=== PATIENT | female | born 1930 | race African-American/Black ===

== ENCOUNTER 2017-03-04 10:24 | Outpatient (CLI) | payer OTHER ==
[~2017-03-04 10:24] MED LIST: ALBUTEROL2 MG/5 ML PO; ALPR0.5T24 PO; AMLO5TAB PO; AMOX875T8 PO; CIPRO500 MG PO; HYDR2TAB12 PO; LEXAPRO10 MG OR; LORA10TA3 PO; MEDROL DOSEPAK4 MG PO; NYST100048 PO; OXYC5TAB24 PO; ZOLP10TA2 PO; [UNRECOGNIZED DRUG - OTHER] EX
[2017-03-04 11:09] LABS: PLATELET COUNT 105 K/uL (152-353)
[2017-03-04 11:22] LABS: POTASSIUM 3.9 mmol/L (3.6-5.2); SODIUM 139 mmol/L (136-145)
[2017-03-04 11:45] LABS: PARTIAL THROMBOPLASTIN TIME 28.5 SECONDS (24.5-33.6)
== END 2017-03-04 19:36 | disposition home or self-care (01) ==
LOC: LABW 10:24
PROVIDERS: Family Medicine
DX: R42 Dizziness and giddiness (principal); R51 Headache; R63.4 Abnormal weight loss; R74.8 Abnormal levels of other serum enzymes; Z85.3 Personal history of malignant neoplasm of breast; D69.6 Thrombocytopenia, unspecified; E55.9 Vitamin D deficiency, unspecified
CPT/HCPCS: 36415; 80053; 80061; 81000; 82043; 82306; 82570; 83735; 84439; 84443; 84550; 85027; 85610; 85651; 85730

== ENCOUNTER 2017-03-06 10:40 | Outpatient (CLI) | payer OTHER | END 2017-03-06 19:16 | disposition home or self-care (01) | LOC: LABW 10:40 | DX: R42 Dizziness and giddiness (principal); R53.1 Weakness; D64.9 Anemia, unspecified | CPT/HCPCS: 36415; 82607; 82728; 82746; 83540; 83550 ==

== ENCOUNTER 2017-03-18 09:44 | Outpatient (CLI) | payer OTHER | END 2017-03-18 19:06 | disposition home or self-care (01) | LOC: CT 09:44 | DX: R42 Dizziness and giddiness (principal); R51 Headache; R63.4 Abnormal weight loss; F32.89 Other specified depressive episodes; Z85.3 Personal history of malignant neoplasm of breast; R74.8 Abnormal levels of other serum enzymes | CPT/HCPCS: Q9963 ==

== ENCOUNTER 2017-04-03 09:43 | Outpatient (CLI) | payer OTHER | END 2017-04-03 19:30 | disposition home or self-care (01) | LOC: US 09:43 | DX: R93.5 Abnormal findings on diagnostic imaging of other abdominal regions, including retroperitoneum (principal); R53.1 Weakness; R63.0 Anorexia; C50.919 Malignant neoplasm of unspecified site of unspecified female breast ==

== ENCOUNTER 2017-07-22 11:55 | Outpatient (CLI) | payer OTHER ==
[2017-07-22 12:20] LABS: POTASSIUM 3.9 mmol/L (3.6-5.2); SODIUM 140 mmol/L (136-145)
[2017-07-22 13:01] LABS: PLATELET COUNT 103 K/uL (152-353)
== END 2017-07-22 12:55 | disposition home or self-care (01) ==
LOC: LABW 11:55
PROVIDERS: Internal Medicine Hematology & Oncology
DX: C50.811 Malignant neoplasm of overlapping sites of right female breast (principal); E55.9 Vitamin D deficiency, unspecified
CPT/HCPCS: 36415; 80053; 82306; 85027

== ENCOUNTER 2017-07-24 16:15 | Outpatient (CLI) | payer OTHER ==
[2017-07-24 16:48] LABS: PLATELET COUNT 97 K/uL (152-353)
== END 2017-07-24 19:13 | disposition home or self-care (01) ==
LOC: LABW 16:15
PROVIDERS: Internal Medicine Hematology & Oncology
DX: C50.811 Malignant neoplasm of overlapping sites of right female breast (principal); R53.83 Other fatigue; R53.81 Other malaise
CPT/HCPCS: 36415; 80074; 85027; 87522

== ENCOUNTER 2017-08-30 11:34 | Emergency (ER) | payer OTHER ==
[~2017-08-30] VITALS: Ht 147.3 cm; Wt 42.6 kg
[2017-08-30 12:00] VITALS: BP 151/71; TEMP 98.4
[2017-08-30 12:17] LABS: PLATELET COUNT 162 K/uL (152-353)
[2017-08-30 12:34] LABS: POTASSIUM 3.2 mmol/L (3.6-5.2); SODIUM 137 mmol/L (136-145)
== END 2017-08-30 14:45 | disposition home or self-care (01) ==
LOC: ED 11:34
DX: K52.89 Other specified noninfective gastroenteritis and colitis (principal)
CPT/HCPCS: 80053; 81000; 83605; 85027; 87804; 96374; 96375; 99284; J0696; J2405

== ENCOUNTER 2017-09-02 16:41 | Outpatient (CLI) | payer OTHER ==
[2017-09-02 16:58] LABS: PLATELET COUNT 126 K/uL (152-353)
== END 2017-09-02 17:45 | disposition home or self-care (01) ==
LOC: LABW 16:41
PROVIDERS: Internal Medicine Hematology & Oncology
DX: C50.811 Malignant neoplasm of overlapping sites of right female breast (principal)
CPT/HCPCS: 36415; 85027

== ENCOUNTER 2018-01-16 12:21 | Outpatient (CLI) | payer OTHER ==
[2018-01-16 12:47] LABS: PLATELET COUNT 115 K/uL (152-353)
[2018-01-16 12:48] LABS: POTASSIUM 3.6 mmol/L (3.6-5.2)
== END 2018-01-16 19:27 | disposition home or self-care (01) ==
LOC: LABW 12:21
PROVIDERS: Internal Medicine Hematology & Oncology
DX: C50.811 Malignant neoplasm of overlapping sites of right female breast (principal)
CPT/HCPCS: 36415; 80053; 85027

== ENCOUNTER 2018-01-22 09:51 | Outpatient (CLI) | payer OTHER | END 2018-01-22 20:20 | disposition home or self-care (01) | LOC: MAMMO 09:51 | DX: Z85.3 Personal history of malignant neoplasm of breast (principal); Z90.11 Acquired absence of right breast and nipple; Z12.31 Encounter for screening mammogram for malignant neoplasm of breast ==

== ENCOUNTER 2018-11-04 09:11 | Outpatient (CLI) | payer OTHER | END 2018-11-04 23:15 | disposition home or self-care (01) | LOC: CT 09:11 | DX: K46.9 Unspecified abdominal hernia without obstruction or gangrene (principal) ==

== ENCOUNTER 2018-11-30 18:14 | Emergency (ER) | payer OTHER ==
[~2018-11-30] VITALS: Ht 142.2 cm; Wt 42.6 kg
[2018-11-30 20:24] LABS: PLATELET COUNT 107 K/uL (152-353)
[2018-11-30 20:27] LABS: POTASSIUM 3.8 mmol/L (3.6-5.2)
[2018-11-30 23:34] VITALS: BP 150/78; TEMP 98.2
== END 2018-11-30 23:38 | disposition home or self-care (01) ==
LOC: ED 18:14
PROVIDERS: Family Medicine
DX: K59.09 Other constipation (principal); R10.32 Left lower quadrant pain; K45.8 Other specified abdominal hernia without obstruction or gangrene
CPT/HCPCS: 36415; 80053; 82150; 83605; 83690; 85027; 87040; 96360; 96375; 99284; J2175; J2405; Q9963

== ENCOUNTER 2018-12-15 17:44 | Inpatient (IN) | payer OTHER ==
[~2018-12-15] VITALS: Ht 142.2 cm; Wt 42.2 kg
[2018-12-15 18:24] VITALS: BP 161/70; TEMP 97.6; Ht 142.2 cm; Wt 42.2 kg
--- NOTE | 2018-12-15 18:36 | NUR ---
1750 PT ARRIVED TO FLOOR VIA W/C ACCOMPANIED BY DAUGHTER. PT DOES NOT SPEAK [place]. ROCIO, TOM TRANSLATED. PT IS C/O PAIN IN LOWER BACK. PT HAS 22G IV TO LEFT FOREARM X2 STICKS. PT IS IN NAD AT THIS TIME. PT HR REGULAR ON AUSCULTATION. CLEAR BILAT LUNG SOUNDS THROUGHT OUT ALL LOBES. PT REQUIRES ASSISTANCE TO TRANSFER. NO WOUNDS PRESENT ON ADMISSION.
[2018-12-15 19:21] LABS: PLATELET COUNT 121 K/uL (152-353)
[2018-12-15 19:53] VITALS: BP 154/74; TEMP 98.6
[2018-12-15 20:15] LABS: POTASSIUM 3.6 mmol/L (3.6-5.2)
--- NOTE | 2018-12-15 20:40 | NUR ---
16FR ECHEVARRIA CATH INSERTED USING [facility]. URINE SAMPLE TAKEN TO LAB. PT TOLERATED WELL. PT WAS ASKED IF HER PAIN WAS DECREASING, PT STATED THAT HER WAS. PT WAS MEDICATED BEFORE HAND
[2018-12-15] MEDS ORDERED: CLON0.5T36 PO (21:48)
[2018-12-15] MEDS ORDERED: AMLODIPINE BESYLATE PO (21:48)
[2018-12-15] MEDS ORDERED: HYDR25CA25 PO (21:50)
[2018-12-15] MEDS ORDERED: AMBIEN5 MG PO (21:50)
[2018-12-15 23:49] VITALS: BP 159/69; TEMP 98.2
[2018-12-16 04:00] VITALS: BP 172/71; TEMP 97.8
--- NOTE | 2018-12-16 04:00 | NUR ---
ASSISTED PT UP TO BSC. PT BECAME NAUSETED. PT WAS GIVEN ZOFRAN AND TORADOL. PT WANTED TO GO INTO BATHROOM, ASSISTED PT INTO BATHROOM. PT LOOKS AT CATH AND SAYS DARNELLEE. PT STATED NO SARI (NO BM)
--- NOTE | 2018-12-16 04:21 | NUR ---
88YOF who was admitted to [facility] with a diagnosis of fall with severe back pain, n/v/dehydration, intractable pain and IBW = 90+/-10% and is 103% IBW and Kcal needs 2908-7267 kcal/day, Protein needs 40-50 grams and Fluids= 3427-6408++ ml d/t Dx. per day x 25. BMI at 19.43 wnl's for height and weight ratio. Recommend: 1-Increase Fluids as tolerated. 2-If any open areas from fall add Vitamin C 500 mg BID, ZNSO4 220 mg per day. 3- If not eating 75% of meals add a MVI1 po q day and a supplement
[2018-12-16] MEDS ORDERED: EQL CLEARLAX PO (05:32)
[2018-12-16 08:00] VITALS: BP 138/61; TEMP 97.7
[2018-12-16 12:00] VITALS: BP 148/62; TEMP 97.7
[2018-12-16 16:00] VITALS: BP 146/56; TEMP 97.5
[2018-12-16 20:21] VITALS: BP 147/58; TEMP 98.1
[2018-12-16 23:47] VITALS: BP 150/68; TEMP 97.7
[2018-12-17 04:00] VITALS: BP 146/61; TEMP 98.3
[2018-12-17 04:44] LABS: PLATELET COUNT 100 K/uL (152-353)
[2018-12-17 05:06] LABS: POTASSIUM 3.3 mmol/L (3.6-5.2)
[2018-12-17 08:00] VITALS: BP 172/82; TEMP 98.1
[2018-12-17 12:00] VITALS: BP 141/61; TEMP 98.2
[2018-12-17 16:00] VITALS: BP 143/95; TEMP 98.1
--- NOTE | 2018-12-17 18:30 | NUR ---
PT TURNED ON LEFT LATERAL SIDE. FLEETING ENEMA ADMINISTERED. PT HELD ENEMA FOR 5 MINUTES AND PRODUCED SMALL FORMED BM IN BSC. PT WAS CLEANED AND DRIED AND ASSISTED BACK TO BED. CALL LIGHT WITHIN REACH. WILL CONTINUE TO MONITOR PT.
[2018-12-17 20:00] VITALS: BP 126/54; TEMP 98.4
[2018-12-18] VITALS: BP 128/58; TEMP 98.4
--- NOTE | 2018-12-18 03:24 | NUR ---
12/18/18 0030 PT IS AWAKE CONTINOUSLY IS TRYING TO GET OUT OF BED ASSISTED BACK TO BED ALARM ON.CC 12/18/18 0125 BED ALARM GOING OFF AGAIN PCT WENT TO ROOM PT OFF BED HOLDING ECHEVARRIA CATHETER AND PULLED IT OUT WITH BULB INFLATED NO TRAUMA NOTED.ASSISTED PT ONCE AGAIN TO GET BACK IN BED.TRIED TO CALL FAMILY BUT HAS NOT RESPONSED.C 12/18/18 0145 FAMILY MEMBER IS HERE EXPLAINED SITUATION AND THAT IF HE COULD STAY THEY WOULD BE VERY HELPFUL.TOLD HIM I JUST GOT HER BACK TO BED AFTER ASSISTING TO BEDSIDE COMMODE VOIDED 250 ML.PT WAS GIVEN A SNACK.CC 12/18/18 0330 FAMILY MEMBER PRESENT IN ROOM WITH PATIENT ASKED HIM IF SHE IS TRYING TO GET UP AND HE SAID NO I TOLD HIM IT IS BECAUSE SHE KNOWS SOMEONE IS WITH HER HE AGREED.TOLD HIM TO CALL IF HE NEEDS ANY ASSISTANCE.CALL LIGHT WITHIN REACH.CC
[2018-12-18 03:55] VITALS: BP 140/60; TEMP 98.6
--- NOTE | 2018-12-18 04:29 | NUR ---
12/18/18 0425 PT GETTING OUT OF BED ASSITED TO BEDSIDE COMMODE VOIDED 500ML YELLOW URINE.ASSISTED BACK TO BED BED ALARM PUT BACK ON.FAMILY MEMBER STEPPED AWAY FROM ROOM.CC
[2018-12-18 05:25] LABS: PLATELET COUNT 99 K/uL (152-353)
[2018-12-18 06:01] LABS: POTASSIUM 2.9 mmol/L (3.6-5.2)
[2018-12-18 08:00] VITALS: BP 136/63; TEMP 97.8
[2018-12-18 12:00] VITALS: BP 116/37; TEMP 98.1
[2018-12-18 14:46] LABS: POTASSIUM 3.8 mmol/L (3.6-5.2)
--- NOTE | 2018-12-18 16:41 | NUR ---
1630 PT IV DC'D TIP INTACT NO REDNESS OR SWELLING NOTED. PT TOLERATED WELL. PT AND DAUGHTER GIVEN DC INSTRUCTIONS. PT DAUGHTER GIVEN PRESCRIPTIONS FOR PT NEW MEDICATIONS. EACH MEDICATION EXPLAINED TO DAUGHTER ON HOW THE PT IS TO TAKE THEM. INSTRUCTED PT DAUGHTER TO SCHEDULE A FOLLOW UP WITH DR. JAMES IN 5 TO 7 DAYS, PT WILL BE REFERRED TO ORTHOPEDIC FROM DR. JAMES'S OFFICE. PT DC VIA WC.
== END 2018-12-18 13:05 | disposition home or self-care (01) | DRG 552 ==
LOC: MED/SURG 17:44
PROVIDERS: ADMIT Family Medicine
DX: S22.088A Other fracture of T11-T12 vertebra, initial encounter for closed fracture (principal); E86.0 Dehydration; K59.09 Other constipation; I10 Essential (primary) hypertension; M81.0 Age-related osteoporosis without current pathological fracture; Y92.098 Other place in other non-institutional residence as the place of occurrence of the external cause; D64.89 Other specified anemias; D69.6 Thrombocytopenia, unspecified; B19.20 Unspecified viral hepatitis C without hepatic coma; W18.39XA Other fall on same level, initial encounter
CPT/HCPCS: 51702; 80053; 81000; 82306; 82607; 82746; 83735; 84100; 85027; 96360; 96361; 96372; 96374; 96375; J1170; J1650; J1885; J2405; J3490

== ENCOUNTER 2019-02-09 10:23 | Outpatient (CLI) | payer OTHER ==
[~2019-02-09 10:23] MED LIST changes: +AMBIEN5 MG PO; +AMLODIPINE BESYLATE PO; +CLON0.5T36 PO; +EQL CLEARLAX PO; +HYDR25CA25 PO
== END 2019-02-09 10:54 | disposition short-term general hospital (02) ==
LOC: AMB 10:23
DX: M25.551 Pain in right hip (principal); W18.30XA Fall on same level, unspecified, initial encounter; Y92.018 Other place in single-family (private) house as the place of occurrence of the external cause
CPT/HCPCS: A0425; A0427

== ENCOUNTER 2019-09-27 09:28 | Outpatient (CLI) | payer OTHER | END 2019-09-27 19:04 | disposition home or self-care (01) | LOC: US 09:28 | DX: R94.31 Abnormal electrocardiogram [ECG] [EKG] (principal); N63.10 Unspecified lump in the right breast, unspecified quadrant; R10.11 Right upper quadrant pain ==

== ENCOUNTER 2020-07-06 19:33 | Emergency (ER) | payer OTHER ==
[~2020-07-06] VITALS: Ht 142.2 cm; Wt 41.7 kg
[2020-07-06 20:40] LABS: PLATELET COUNT 120 K/uL (152-353)
[2020-07-06 20:46] LABS: POTASSIUM 3.2 mmol/L (3.6-5.2)
[2020-07-07 01:30] VITALS: BP 153/61; TEMP 98
== END 2020-07-07 01:30 | disposition short-term general hospital (02) ==
LOC: ED 19:33
PROVIDERS: Emergency Medicine Emergency Medical Services
PROC: 0D9670Z Drainage of Stomach with Drainage Device, Via Natural or Artificial Opening (ICD-10-PCS; principal; 2020-07-06)
DX: K56.699 Other intestinal obstruction unspecified as to partial versus complete obstruction (principal); Z03.818 Encounter for observation for suspected exposure to other biological agents ruled out
CPT/HCPCS: 36415; 43754; 80053; 81000; 83690; 85027; 87086; 87088; 87635; 96360; 96375; 99285; J2270; J2405; Q9963; U0003

== ENCOUNTER 2020-08-18 13:36 | Emergency (ER) | payer OTHER ==
[~2020-08-18] VITALS: Ht 142.2 cm; Wt 41.7 kg
[2020-08-18 13:43] VITALS: TEMP 98.7
[2020-08-18 14:55] LABS: PLATELET COUNT 134 K/uL (152-353)
[2020-08-18 15:04] LABS: POTASSIUM 2.8 mmol/L (3.6-5.2)
[2020-08-18 17:23] VITALS: BP 134/68
== END 2020-08-18 17:24 | disposition home or self-care (01) ==
LOC: ED 13:36
PROVIDERS: Family Medicine
DX: M48.56XA Collapsed vertebra, not elsewhere classified, lumbar region, initial encounter for fracture (principal); K59.09 Other constipation; E87.6 Hypokalemia
CPT/HCPCS: 80053; 81000; 82150; 83690; 85027; 99283; 99284; Q9963

== ENCOUNTER 2021-05-06 11:44 | Emergency (ER) | payer OTHER ==
[~2021-05-06] VITALS: Ht 142.2 cm; Wt 41.7 kg
[2021-05-06 11:44] VITALS: TEMP 98.5
[2021-05-06 12:36] LABS: PLATELET COUNT 112 K/uL (152-353)
[2021-05-06 12:44] LABS: POTASSIUM 3.2 mmol/L (3.6-5.2)
[2021-05-06 12:49] LABS: PARTIAL THROMBOPLASTIN TIME 31.2 SECONDS (24.5-33.6)
[2021-05-06 15:30] VITALS: BP 113/62
== END 2021-05-06 15:30 | disposition home or self-care (01) ==
LOC: ED 11:48
PROVIDERS: Hospitalist
DX: M54.5 Low back pain (principal); G89.29 Other chronic pain; M25.552 Pain in left hip; M19.09 Primary osteoarthritis, other specified site; W01.0XXA Fall on same level from slipping, tripping and stumbling without subsequent striking against object, initial encounter; Y92.89 Other specified places as the place of occurrence of the external cause
CPT/HCPCS: 80048; 85027; 85610; 85730; 96374; 96375; 99284; J1885; J2930

== ENCOUNTER 2021-05-08 11:15 | Emergency (ER) | payer OTHER ==
[~2021-05-08] VITALS: Ht 142.2 cm; Wt 41.7 kg
[2021-05-08 11:33] VITALS: BP 150/69; TEMP 99.1
[2021-05-08 12:06] LABS: PLATELET COUNT 117 K/uL (152-353)
[2021-05-08 12:29] LABS: PARTIAL THROMBOPLASTIN TIME 27.8 SECONDS (24.5-33.6)
[2021-05-08 14:09] LABS: POTASSIUM 3.4 mmol/L (3.6-5.2); SODIUM 140 mmol/L (136-145)
== END 2021-05-08 16:41 | disposition home or self-care (01) ==
LOC: ED 11:15
PROVIDERS: Hospitalist
DX: R55 Syncope and collapse (principal); C79.9 Secondary malignant neoplasm of unspecified site; R60.0 Localized edema; K76.9 Liver disease, unspecified
CPT/HCPCS: 80053; 80320; 81000; 82550; 82553; 83880; 84484; 85027; 85610; 85730; 93005; 96360; 99284; Q9963

== ENCOUNTER 2021-05-24 14:26 | Emergency (ER) | payer OTHER ==
[~2021-05-24] VITALS: Ht 142.2 cm; Wt 41.7 kg
[2021-05-24 15:23] LABS: PLATELET COUNT 94 K/uL (152-353)
[2021-05-24 15:35] LABS: POTASSIUM 3.7 mmol/L (3.6-5.2)
[2021-05-24 15:52] LABS: PARTIAL THROMBOPLASTIN TIME 33.9 SECONDS (24.5-33.6)
[2021-05-24 16:35] VITALS: BP 134/72; TEMP 98
== END 2021-05-24 16:35 | disposition home or self-care (01) ==
LOC: ED 14:26
PROVIDERS: Emergency Medicine
DX: S70.12XA Contusion of left thigh, initial encounter (principal); S80.12XA Contusion of left lower leg, initial encounter; C50.919 Malignant neoplasm of unspecified site of unspecified female breast; C78.7 Secondary malignant neoplasm of liver and intrahepatic bile duct; X58.XXXA Exposure to other specified factors, initial encounter; Y92.89 Other specified places as the place of occurrence of the external cause
CPT/HCPCS: 80053; 85027; 85610; 85730; 99283

== ENCOUNTER 2021-05-31 16:23 | Emergency (ER) | payer OTHER ==
[~2021-05-31] VITALS: Ht 142.2 cm; Wt 49.9 kg
[2021-05-31 16:56] LABS: PLATELET COUNT 124 K/uL (152-353)
[2021-05-31 17:10] LABS: POTASSIUM 4.6 mmol/L (3.6-5.2)
[2021-05-31 17:14] LABS: PARTIAL THROMBOPLASTIN TIME 35.7 SECONDS (24.5-33.6)
[2021-05-31 20:20] VITALS: BP 121/61; TEMP 98.1
== END 2021-05-31 20:25 | disposition home or self-care (01) ==
LOC: ED 16:23
PROVIDERS: Emergency Medicine
PROC: 0T9B70Z Drainage of Bladder with Drainage Device, Via Natural or Artificial Opening (ICD-10-PCS; principal; 2021-05-31)
DX: K59.09 Other constipation (principal); C50.919 Malignant neoplasm of unspecified site of unspecified female breast; C79.9 Secondary malignant neoplasm of unspecified site; E86.0 Dehydration
CPT/HCPCS: 51702; 80053; 81000; 83880; 84484; 85027; 85610; 85730; 93005; 96374; 99283; 99284; J1885